=== PATIENT | male | born 1990 | race Caucasian/White ===

== ENCOUNTER 2020-08-19 13:15 | Outpatient (REF) | payer MEDICAID, SELFPAY | END 2020-08-19 13:16 | disposition home or self-care (01) | LOC: HO.LAB 13:15 | PROVIDERS: Visit Provider Internal Medicine | DX: Z20.822 Contact with and (suspected) exposure to COVID-19 (principal) | CPT/HCPCS: 36415; C9803; U0003 ==

== ENCOUNTER 2025-05-10 10:24 | Outpatient (REF) | payer MEDICAID, SELFPAY ==
--- OUTSIDE RECORDS SUMMARY | 2025-05-10 09:30 | XMS_ITS | Encounter Summary ---
Author Organization [employer] Address [address] [place] [address] Care Team Providers Care Manager Web Name Role Phone Oanh Agrawal MD Primary Care Provide r Encounter Details Date Type Department Care Team ([facility] st Contact Info) Description 05/10/2025 9:30 AM EDT Office Visit [facility] [address] [place] [address] [phone] Oanh Agrawal MD [address], [place] [phone] Class 1 obesity due to excess calories without serious comorbidity with body mass index (BMI) of 30.0 to 30.9 in adult (Primary Dx); Dietary counseling; Exercise counseling; Onychomycosis; Tinea cruris; Chronic bilateral low back pain, unspecified whether sciatica present Social History Tobacco Use Types Packs/Day Years Used Date Smoking Tobacco: Never Smokeless Tobacco: Never Alcohol Use Standard Drinks/Week Comments Never 0 (1 standard drink = 0.6 oz pur e alcohol) Depression Answer Date Recorded Patient Health Questionnaire-9 Score 9 05/10/2025 Patient Health Questionnaire-9 Score 9 05/10/2025 Last PHQ-9: Questionnaire Data Not on file 1 Housing Stability Answer Date Recorded What is your housing situation today? I have leeann cardona 05/10/[address] you li ve. Do you have problems with any of the following? None of the above 05/10/2025 Food Insecurity Answer Date Recorded Within the past 12 months, y ou worried that your food would run out before you got money to buy more: Never True 2024 Within the past 12 months,th e food you bought just didn't last and you didn't have enough money to get more: Sometimes True 05/10/2025 Transportation Answer Date Recorded In the past 12 months, has l ack of transportation kept you from medical appts, meetings, work or from getting things needed for daily living? No 05/10/2025 Utilities Answer Date Recorded In the past 12 months, has t he electric, gas, oil or water company threatened to shut off services in your home? No 05/10/2025 Depression Answer Date Recorded Patient Health Questionnaire-2 Score 3 05/10/2025 Internet Access Answer Date Recorded Internet Access Q1 Yes 05/10/2025 Internet Access Q2 Not on file 05/10/2025 Sex and Gender Information Value Date Recorded Sex Assigned at Male 05/25/2022 10:17 AM EDT Legal Sex Male 10:17 AM EDT Gender Identity Male 01/10/2025 9:12 AM EDT Sexual Orientation Straight 05/25/2022 10 :17 AM EDT documented as of this encounter Last Filed Vital Signs Vital Sign Reading Time Taken Comments Blood Pressure 124/76 05/10/2025 9:46 AM EDT Pulse 65 05/10/2025 9:46 AM EDT Temperature 36.3 C (97.3 F) 05/10/2025 9:46 AM EDT Respiratory Rate 20 05/10/2025 9:46 AM EDT Oxygen Saturation 99% 05/10/2025 9:46 AM EDT Inhaled Oxygen Concentration - - Weight 90.6 kg (199 lb 12.8 oz) 05/10/2025 9:46 AM EDT Height 172.7 cm (5' 8 ) 05/10/2025 9:46 AM EDT Body Mass Index 30.38 05/10/2025 9:46 AM EDT documented in this encounter Functional Status * Over the past 2 weeks, how often have you been bothered by any of the following problems? Question Answer Date of Assessment Author Patient Health Questionnaire-2 Score 3 04/25 9:47 AM EDT Alisia Stone MA * Little interest or pleasure in doing things Answer Date of Assessment Author More than half the days 05/10/2025 9:47 AM EDT Alisia Rosario MA * Feeling down, depressed, or hopeless Answer Date of Assessment Author Several days 05/10/2025 9:47 AM EDT Sarmad Stone ra, [place] * Trouble falling or staying asleep, or sleeping too much Answer Date of Assessment Author More than half the days 05/10/2025 9:47 AM EDT Alisia Rosario MA * Feeling tired or having little energy Answer Date of Assessment Author Several days 05/10/2025 9:47 AM EDT Sarmad Stone ra, [place] * Poor appetite or overeating Answer Date of Assessment Author Several days 05/10/2025 9:47 AM EDT Sarmad Stone ra, [place] * Feeling bad about yourself - or that you are a failure or have let yourself or your family down Answer Date of Assessment Author Several days 05/10/2025 9:47 AM EDSarmad Lee ra, [place] * Trouble concentrating on things, such as reading the newspaper or watching television Answer Date of Assessment Author Several days 05/10/2025 9:47 AM EDT Sarmad Stone ra, [place] * Moving or speaking so slowly that other people could have noticed? Or the opposite - being so fidgety or restless that you have been moving around a lot more than usual. Answer Date of Assessment Author Not at all 05/10/2025 9:47 AM EDSarmad Lee ra, [place] * Thoughts that you would be better off or hurting yourself in some way Answer Date of Assessment Author Not at all 05/10/2025 9:47 AM Sarmad Hyde ra, [place] * Patient Health Questionnaire-9 Score Answer Date of Assessment Author 9 05/10/2025 9:47 AM Sarmad Hyde ra, [place] * How difficult have these problems made it for you to do your work, take care of things at home, or get along with other people? Answer Date of Assessment Author Very difficult 05/10/2025 9:47 AM Sarmad Hyde ra, [place] documented as of this encounter Progress Notes * Oanh Fisher MD - 05/10/2025 9:30 AM EDT SUBJECTIVE: Spencer Matute is a 34 y.o. year old male who presents for New Patient . Occupation: Works putting floors Lives with: With partner - EtOH occasionally on holidays - smoking cigarettes denies - recreational drug use used to smoke marijuana to help to quit 3 years ago Diet: Regular Exercise: Currently sedentary used to be active Surgeries/Hospitalizations: None PMHx: Anemia when he was a child FMHx: Hypertension on father, maternal grandmother breast cancer and possible colon cancer? Immunizations: Declines flu vaccine today Acute Concerns: History of difficulty sleeping, previously used marijuana to aid sleep, stopped 2-3 years ago - Fungal infection affecting both outer toenails, unsuccessfully treated with topical agents prior to visit - Rash in the groin area developed after starting use of certain underwear - Reports history of mild anemia in childhood, resolved - Occasional episodes of lower back pain with radiating sensation, occurred twice, resolved spontaneously - Denies current use of tobacco, alcohol only on special occasions, denies current drug use Social History Social History Narrative Not on file Problem List[1] Family History[2] Review of Systems Constitutional: Negative. HENT: Negative. Respiratory: Negative. Cardiovascular: Negative. Skin: Positive for rash. OBJECTIVE: Vitals: 05/10/25 0946 BP: 124/76 BP Location: Left arm Patient Position: Sitting BP Cuff Size: Large adult Pulse: 65 Resp: 20 Temp: 97.3 ??F (36.3 ??C) TempSrc: Temporal SpO2: 99% Weight: 199 lb 12.8 oz (90.6 kg) Height: 5' 8 (1.727 m) Physical Exam Constitutional: Appearance: Normal appearance. Cardiovascular: Rate and Rhythm: Normal rate and regular rhythm. Pulmonary: Effort: Pulmonary effort is normal. Breath sounds: Normal breath sounds. Abdominal: General: Abdomen is flat. Palpations: Abdomen is soft. Musculoskeletal: Right lower leg: No edema. Left lower leg: No edema. Neurological: Mental Status: He is alert. Follow Up: Follow up for televisit 4-6 weeks review of labs . Medications Ordered Prior to Encounter[3] Problem List Items Addressed This Visit Class 1 obesity due to excess calories without serious comorbidity with body mass index (BMI) of 30.0 to 30.9 in adult - Primary Class 1 obesity present, likely related to decreased physical activity and dietary habits. - Ordered laboratory tests to evaluate metabolic status, including glucose, renal function, hepaticfunction, anemia, HIV, hepatitis, and vitamin D. Referred to account leader. Advised weight reductionthrough diet and exercise. Relevant Orders CBC auto differential (Completed) Comprehensive Metabolic Panel (Completed) Hemoglobin A1c (Completed) HIV-1/2 Antigen and Antibodies, Fourth Generation, with Reflexes Hepatitis C Antibody with Reflex to HCV, RNA, Quantitative, Real-Time PCR Lipid Panel, Standard (Completed) Vitamin D, 25-Hydroxy, Total, Immunoassay (Completed) TSH with Reflex to Free T4 (Completed) Onychomycosis Onychomycosis affecting bilateral lateral toenails. - Prescribed topical antifungal solution for affected nails. Advised application of Vicks during the day and antifungal solution at night. Ordered laboratory tests to assess hepatic function prior toconsidering oral antifungal therapy. Follow-up televisit scheduled in 4-6 weeks to review response and laboratory results. Provided refill for topical medication. Relevant Medications clotrimazole (Lotrimin) 1 % cream ciclopirox (Penlac) 8 % solution Tinea cruris - Tinea cruris present in the inguinal region. - Prescribed topical antifungal cream to be applied twice daily for a minimum of 2 weeks, up to 4 weeks as needed. Advised to keep area dry and clean, and to avoid tight underwear. Follow-up televisit scheduled in 4-6 weeks to assess treatment response. Relevant Medications clotrimazole (Lotrimin) 1 % cream ciclopirox (Penlac) 8 % solution Chronic bilateral low back pain Sciatica symptoms likely related to increased body weight and physical activity. - Advised weight reduction and regular exercise to decrease pressure on lumbar spine. Recommended gradual increase in activity and proper technique to prevent recurrence. Advised to return for evaluation if symptoms recur. Other Visit Diagnoses Dietary counseling Exercise counseling [1] Patient Active Problem List Diagnosis Severe dental caries Pain, dental Class 1 obesity due to excess calories without serious comorbidity with body mass index (BMI) of 30.0 to 30.9 in adult Onychomycosis Tinea cruris Chronic bilateral low back pain [2] No family history on file. [3] Current Outpatient Medications on File Prior to Visit Medication Sig Dispense Refill acetaminophen (Tylenol 8 Hour) 650 MG ER tablet Take 1 tablet (650 mg) by mouth every 8 (eight) hours if needed for mild pain. Do not crush, chew, or split. 30 tablet 0 ibuprofen 600 MG tablet Take 1 tablet (600 mg) by mouth 3 times daily. 15 tablet 0 No current facility-administered medications on file prior to visit. documented in this encounter Miscellaneous Notes * Assessment & Plan Note - Oanh Fisher MD - 05/10/2025 12:51 PM EDT Associated Problem(s): Chronic bilateral low back pain Sciatica symptoms likely related to increased body weight and physical activity. - Advised weight reduction and regular exercise to decrease pressure on lumbar spine. Recommended gradual increase in activity and proper technique to prevent recurrence. Advised to return for evaluation if symptoms recur. * Assessment & Plan Note - Oanh Fisher MD - 05/10/2025 12:50 PM EDT Associated Problem(s): Tinea cruris - Tinea cruris present in the inguinal region. - Prescribed topical antifungal cream to be applied twice daily for a minimum of 2 weeks, up to 4 weeks as needed. Advised to keep area dry and clean, and to avoid tight underwear. Follow-up televisit scheduled in 4-6 weeks to assess treatment response. * Assessment & Plan Note - Oanh Fisher MD - 05/10/2025 12:49 PM EDT Associated Problem(s): Onychomycosis Onychomycosis affecting bilateral lateral toenails. - Prescribed topical antifungal solution for affected nails. Advised application of Vicks during the day and antifungal solution at night. Ordered laboratory tests to assess hepatic function prior toconsidering oral antifungal therapy. Follow-up televisit scheduled in 4-6 weeks to review response and laboratory results. Provided refill for topical medication. * Assessment & Plan Note - Oanh Fisher MD - 05/10/2025 12:49 PM EDT Associated Problem(s): Class 1 obesity due to excess calories without serious comorbidity with bodymass index (BMI) of 30.0 to 30.9 in adult Class 1 obesity present, likely related to decreased physical activity and dietary habits. - Ordered laboratory tests to evaluate metabolic status, including glucose, renal function, hepaticfunction, anemia, HIV, hepatitis, and vitamin D. Referred to account leader. Advised weight reductionthrough diet and exercise. documented in this encounter Plan of Treatment Upcoming Encounters Date Type Department Care Team (Late st Contact Info) Description 07/06/2025 9:45 AM EST Telemedicine [facility] [address] [place] [address] [phone] Oanh Agrawal MD [address] [place] [phone] Scheduled Orders Name Type Priority Associated Diagnoses Orde r Schedule HIV-1/2 Antigen and Antibodies, Fourth Generation, with Reflexes Lab Routine Class 1 obesity due to excess calories without serious comorbidity with body mass index (BMI) of 30.0 to 30.9 in adult Expected: 05/10/2025 (Approximate), Expires: 05/10/2026 Hepatitis C Antibody with Reflex to HCV, RNA, Quantitative, Real-Time PCR Lab Routine Class 1 obesity due to excess calories without serious comorbidity with body mass index (BMI) of 30.0 to 30.9 in adult Expected: 05/10/2025, Expires: 05/10/2026 documented as of this encounter Procedures Procedure Name Priority Date/Time Associated Diagnosis Comments VITAMIN D,25-OH,TOTAL,IA Routine 05/10/2025 10:35 AM EDT Class 1 obesity due to excess calories without serious comorbidity with body mass index (BMI) of 30.0 to 30.9 in adult TSH W/REFLEX TO FT4 Routine 05/10/2025 1 0:35 AM EDT Class 1 obesity due to excess calories without serious comorbidity with body mass index (BMI) of 30.0 to 30.9 in adult CBC WITH AUTO DIFFERENTIAL Routine 05/10/2025 10:35 AM EDT Class 1 obesity due to excess calories without serious comorbidity with body mass index (BMI) of 30.0 to 30.9 in adult HEMOGLOBIN A1C Routine 05/10/2025 10:35 AM EDT Class 1 obesity due to excess calories without serious comorbidity with body mass index (BMI) of 30.0 to 30.9 in adult LIPID PANEL, STANDARD Routine 05/10/2025 10:35 AM EDT Class 1 obesity due to excess calories without serious comorbidity with body mass index (BMI) of 30.0 to 30.9 in adult COMPREHENSIVE METABOLIC PANEL Routine 05/10/2025 10:35 AM EDT Class 1 obesity due to excess calories without serious comorbidity with body mass index (BMI) of 30.0 to 30.9 in adult documented in this encounter Results * TSH with Reflex to Free T4 (05/10/2025 10:35 AM EDT) TSH reflex Free T4 0.93 0.32 - 4.0 uIU/mL [facility] Blood Venous blood specimen / Unknown 05/10/2025 10:35 AM EDT 05/10/2025 11:00 AM EDT us Oanh Fisher MD LAB BLOOD ORDERABLES Final Result [facility] [address] [place] [phone] * (ABNORMAL) Vitamin D, 25-Hydroxy, Total, Immunoassay (05/10/2025 10:35 AM EDT) Vitamin D 25-OH Total 18.2(L) >30 ng/mL [facility] Comment: Health Based Reference Values*< 20 ng/mL Augtwznvc83-18 ng/mL Insufficient> 30 ng/mL Sufficient*Melody COULTER. N Engl J Med. 2007;357:266-280There is no well-established upper level of normal vitamin Dlevels. Some laboratories use 50 ng/mL as an upper limit ofnormal. However, toxicity is patient-dependent and may occurat any level. Careful correlation with the patient'spresentation is necessary and, if there is concern forvitamin D toxicity, treatment should be consideredirrespective of the serum level.Care must be taken in interpreting Vitamin D results fromdifferent laboratories and methodologies. Published datademonstrated that results from patients undergoinghemodialysis may show a negative bias when tested withvarious automated 25-OH vitamin D assays when compared toLC-MS/MS.When testing samples from patients whose predominant form ofVitamin D is Vitamin D2, such as patients receiving VitaminD2 supplementation, results that are subtherapeutic shouldbe confirmed with another method such as LC-MS/MS. Blood Venous blood specimen / Unknown 05/10/2025 10:35 AM EDT 05/10/2025 11:00 AM EDT us Oanh Fisher MD LAB BLOOD ORDERABLES Final Result [facility] [address] [place] [phone] * Lipid Panel, Standard (05/10/2025 10:35 AM EDT) Triglycerides 61 <150 mg/dL [facility] Comment:Desirable Triglyceri de: less than 150 mg/dLBorderline High Triglyceride 150-199 mg/dLHigh Triglyceride: 200-499 mg/dLVery High Triglyceride: greater than or equal to 5OO mg/dL Cholesterol 154 <200 mg/dL [facility] Comment:Desirable Cholestero l: less than 200 mg/dLBorderline High Cholesterol: 200-239 mg/dLHigh Cholesterol: greater than 239 mg/dL LDL Cholesterol Calculated 85 <100 mg/dL [facility] Comment:Desirable LDL: less than 100 mg/dLNear Optimal/Above Optimal LDL: 110- 129 mg/dLBorderline High LDL: 130-159 mg/dLHigh LDL: 160-189 mg/dLVery High LDL: greater than or equal to 190 mg/dL HDL Cholesterol 57 >40 mg/dL [facility] Comment:Desirable HDL: great er than 40 mg/dL Note: This HDL assay may give artificially low results in patients with liver disease. Blood Venous blood specimen / Unknown 05/10/2025 10:35 AM EDT 05/10/2025 11:00 AM EDT us Oanh Fisher MD LAB BLOOD ORDERABLES Final Result Performing Organization Address [facility] Co de Phone Number [facility] [address] [place] [phone] * Hemoglobin A1c (05/10/2025 10:35 AM EDT) Hemoglobin A1c 5.9 <6.0 % [facility] Comment:Hemoglobin A1C Refer ence Range Adults: 4.8 - 6.0 % Non diabetic: < 6.0 % Goal: < 7.0 %Additional Action Suggested: > 8.0 %Note: Hemoglobin A1c results are invalid for patients with abnormal amounts of HbF. Blood transfusions may impact the HbA1c concentration in the patient sample. Estimated Average Glucose 123 mg/dL [facility] Comment:eAG = Estimated ave rage glucose which is %A1C expressed asaverage glucose, using the formula of the [id number] Glucose study (ADAG), Diabetes Care, Vol.31,#8,2007 Blood Venous blood specimen / Unknown 05/10/2025 10:35 AM EDT 05/10/2025 11:00 AM EDT us Oanh Fisher MD LAB BLOOD ORDERABLES Final Result Performing Organization Address [facility] Co de Phone Number [facility] [address] [place] [phone] * (ABNORMAL) Comprehensive Metabolic Panel (05/10/2025 10:35 AM EDT) Sodium 142 135 - 145 mmol/L [facility] Potassium 4.4 3.3 - 5.1 mmol/L [facility] Chloride 108 96 - 108 mmol/L [facility] Carbon Dioxide 27 22 - 29 mmol/L [facility] Anion Gap 11(L) 12 - 20 [facility] Urea Nitrogen (BUN) 20(H) 9 - 16 mg/dL [facility] Creatinine, Serum 1.05 0.5 - 1.4 mg/dL [facility] Estimated Glomerular Filt Rate >60 [facility] Comment:Chronic Kidney Disea se: Estimated GFR < 60 mL/min/[id number] Kidney Disease: Estimated GFR < 15 mL/min/1.73m2 Glucose 108 60 - 115 mg/dL [facility] Calcium 9.5 8.4 - 10.2 mg/dL [facility] Bilirubin, Total 0.2 0.0 - 1.0 mg/dL [facility] Aspartate Amino Transferase 30 5 - 37 U/L [facility] Alanine Aminotransferase 26 0 - 40 U/L [facility] Total Protein 7.8 6.5 - 8.0 g/dL [facility] Albumin Level 5.0 3.5 - 5.0 g/dL [facility] Alkaline Phosphatase 66 39 - 117 U/L [facility] Blood Venous blood specimen / Unknown 05/10/2025 10:35 AM EDT 05/10/2025 11:00 AM EDT us Oanh Fisher MD LAB BLOOD ORDERABLES Final Result [facility] [address] [place] [phone] * (ABNORMAL) CBC auto differential (05/10/2025 10:35 AM EDT) White Blood Count 4.5(L) 4.8 - 10.8 X10*3/uL [facility] Red Blood Count 5.28 4.60 - 5.80 X10*6/uL [facility] Hemoglobin 13.8(L) 14.0 - 18.0 g/dl [facility] Hematocrit 42.1 42.0 - 52.0 % [facility] Mean Corpuscular Volume 79.7(L) 80.0 - 98.0 fL [facility] Mean Corpuscular Hemoglobin 26.1(L) 27.0 - 33.0 pg [facility] Mean Corpuscular HGB Conc 32.8 31.0 - 36.0 g/dl [facility] Red Cell Distribution Width 13.5 11.0 - 16.0 % [facility] Platelet Count 168 160 - 400 X10*3/uL [facility] Mean Platelet Volume 12.3 9.4 - 12.4 fL [facility] Neutrophils Percent Auto 65.7 45 - 73 % [facility] Imm Gran Pct Auto 0.2 0.0 - 0.4 % [facility] Lymphocytes Percent Auto 23.8 20 - 40 % [facility] Monocytes Percent Auto 7.9 2 - 11 % [facility] Eosinophils Percent Auto 1.5 0 - 4 % [facility] Basophils Percent Auto 0.9 0 - 2 % [facility] NRBC Pct Auto 0.0 0.0 - 0.2 /100WBC [facility] Neutrophils Absolute Auto 3.0 2.0 - 8.3 x10*3/uL [facility] Imm Gran Abs Auto 0.01 0.00 - 0.03 X10*3/uL [facility] Lymphocytes Absolute Auto 1.1(L) 1.2 - 4.9 X10*3/uL [facility] Monocytes Absolute Auto 0.4 0.1 - 1.2 X10*3/uL [facility] Eosinophils Absolute Auto 0.1 0.0 - 0.4 X10*3/uL [facility] Basophils Absolute Auto 0.0 0.0 - 0.2 X10*3/uL [facility] NRBC Abs Auto 0.000 0.0 - 0.012 X10*3/uL [facility] Blood Venous blood specimen / Unknown 05/10/2025 10:35 AM EDT 05/10/2025 11:00 AM EDT Oanh Fisher MD LAB BLOOD ORDERABLES Final Result [facility] [address] [place] [phone] documented in this encounter Visit Diagnoses Diagnosis Class 1 obesity due to excess calories without serious comorbidity with body mass index (BMI) of 30.0 to 30.9 in adult- Primary Dietary counseling Dietary surveillance and counseling Exercise counseling Onychomycosis Dermatophytosis of nail Tinea cruris Dermatophytosis of groin and perianal area Chronic bilateral low back pain, unspecified whether sciatica present documented in this encounter Additional Health Concerns Assessment Noted Time PHQ-9 Depression Total Score: 9 05/10/20 9:47 AM EDT documented as of this encounter Care Teams Manager Web Relationship Specialty Start Date End Date Oanh Agrawal MD [address] [place] [phone] PCP - General Internal Medicine 05/10/25 documented as of this encounter
[2025-05-10 11:03] LABS: MANUAL DIFF FLAG NO
[2025-05-10 11:21] LABS: Hematocrit 42.1 % (42.0-52.0); Hemoglobin 13.8 g/dl (14.0-18.0); Imm Gran Abs Auto 0.01 X10*3/uL (0.00-0.03); Imm Gran Pct Auto 0.2 % (0.0-0.4); Lymphocytes Absolute Auto 1.1 X10*3/uL (1.2-4.9); Mean Corpuscular HGB Conc 32.8 g/dl (31.0-36.0); Mean Corpuscular Hemoglobin 26.1 pg (27.0-33.0); Mean Corpuscular Volume 79.7 fL (80.0-98.0); NRBC Abs Auto 0.000 X10*3/uL (0.0-0.012); NRBC Pct Auto 0.0 /100WBC (0.0-0.2); Platelet Count 168 X10*3/uL (160-400); Red Blood Count 5.28 X10*6/uL (4.60-5.80); White Blood Count 4.5 X10*3/uL (4.8-10.8)
[2025-05-10 11:45] LABS: Hemoglobin A1C 148.5416 umol/L
[2025-05-10 12:29] LABS: Alanine Aminotransferase 26 U/L (0-40); Albumin Level 5.0 g/dL (3.5-5.0); Alkaline Phosphatase 66 U/L (39-117); Anion Gap 11 (12-20); Aspartate Amino Transferase 30 U/L (5-37); Blood Urea Nitrogen 20 mg/dL (9-16); Calcium 9.5 mg/dL (8.4-10.2); Carbon Dioxide 27 mmol/L (22-29); Chloride 108 mmol/L (96-108); Cholesterol 154 mg/dL (<200); Estimated Glomerular Filt Rate > 60; HDL Cholesterol 57 mg/dL (>40); Potassium 4.4 mmol/L (3.3-5.1); Sodium 142 mmol/L (135-145); Total Protein 7.8 g/dL (6.5-8.0); Triglycerides 61 mg/dL (<150)
--- OUTSIDE RECORDS SUMMARY | 2025-05-10 12:52 | XMS_ITS | Encounter Summary ---
Author Organization [employer] Address [address] [facility] 7t [place] [address] Care Team Providers Care Director Of Strategic Programs Name Role Phone Oanh Agrawal MD Primary Care Provide r Encounter Details Date Type Department Care Team (Latest Contact Info) Description 05/10/2025 Travel Social History Tobacco Use Types Packs/Day Years [...] AM EDT documented as of this encounter Functional Status * Over the [...] Assessment Author Several days 05/10/2025 9:47 AM Sarmad Hyde ra, [place] * Poor appetite or overeating Answer Date of Assessment Author Several days 05/10/2025 9:47 AM EDSarmad Lee ra, [place] * Feeling bad about yourself [...] 9:47 AM EDSarmad Lee ra, [place] * Moving or speaking so slowly that other people could have noticed? Or the opposite - being so fidgety or restless that you have been moving around a lot more than usual. Answer Date of Assessment Author Not at all 05/10/2025 9:47 AM Sarmad Hyde ra, [place] * Thoughts that you would be better off or hurting yourself in some way Answer Date of Assessment Author Not at all 05/10/2025 9:47 AM EDT Sarmad Stone ra, [place] * Patient Health Questionnaire-9 Score Answer Date of Assessment Author 9 05/10/2025 9:47 AM EDT Sarmad Stone ra, [place] * How difficult have these problems made it for you to do your work, take care of things at home, or get along with other people? Answer Date of Assessment Author Very difficult 05/10/2025 9:47 AM EDT Sarmad Stone ra, [place] documented as of this encounter Plan of Treatment Upcoming Encounters Date Type Department Care Team (Late st Contact Info) Description 07/06/2025 9:45 AM EST Telemedicine [facility] MEDICINE [address] [place] [phone] Oanh Agrawal MD [address] [place] [address] documented as of this encounter Visit Diagnoses Not on filedocumented in this encounter Additional Health Concerns Assessment Noted Time PHQ-9 Depression Total Score: 9 05/10/20 9:47 AM EDT documented as of this encounter Care Teams Director Of Strategic Programs Relationship Specialty Start Date End Date Oanh Agrawal MD [address] [place] [phone] PCP - General Internal Medicine 05/10/25 documented as of this encounter
--- OUTSIDE RECORDS SUMMARY | 2025-05-10 12:52 | XMS_ITS | Encounter Summary ---
Author Organization [employer] Address [address] [place] [address] 7t [place] [address] Care Team Providers Care Laborer Hide House Name Role Phone Oanh Agrawal MD Primary Care Provide r Reason for Visit * Reason Onset Date Comments no insurance emergency dental 01/10/2025 Encounter Details Date Type Department Care Team ([facility] st Contact Info) Description 01/10/2025 Telephone [facility] ADULT DENTAL [address] [place] [address] Brissa Weber, DDS [address] [place] [address] no insurance emergency dental Social History Tobacco Use Types Packs/Day Years Used Date Smoking Tobacco: Never Assessed Sex and Gender Information Value Date Recorded Sex Assigned at Male 05/25/2022 10:17 AM EDT Legal Sex Male 10:17 AM EDT Gender Identity Male 01/10/2025 9:12 AM EDT Sexual Orientation Straight 05/25/2022 10 :17 AM EDT documented as of this encounter Miscellaneous Notes * Telephone Encounter - Analilia Massey - 01/10/2025 9:14 AM EDT Patient is coming in today for emergency dental visit and currently has no insurance. I reached outto M[facility] however unable to connect. Message sent for contact to assist with insurance and/or SFS assistance. test deskman [facility] also informed. Spoke with Meredith and currently dental managed care is unable to assist patient on the dental side. Patient has been advised to come in as soon as possible to 2nd or 3rd floor for assistance with dental and can then return to appt at 1pm. DR documented in this encounter Plan of Treatment Upcoming Encounters Date Type Department Care Team (Late st Contact Info) Description 07/06/2025 9:45 AM EST Telemedicine [facility] MEDICINE [address] [place], [place] [phone] Oanh Agrawal MD [address] [place] [address] documented as of this encounter Visit Diagnoses Not on filedocumented in this encounter Care Teams Laborer Hide House Relationship Specialty Start Date End Date Oanh Agrawal MD [address] [place], [place] [phone] PCP - General Internal Medicine 05/10/25 documented as of this encounter
--- OUTSIDE RECORDS SUMMARY | 2025-05-10 12:52 | XMS_ITS | Encounter Summary ---
Author Organization [employer] Address [address] [facility] 7 [place] [address] Care Team Providers Care Fabric Pattern Grader Name Role Phone Unavailable Primary Care Provider Unavailabl e Reason for Visit * Reason Onset Date Comments CHART PREP 05/09/2025 Encounter Details Date Type Department Care Team ([facility] st Contact Info) Description 05/09/2025 Telephone [facility] MEDICINE [address] [place], [place] [phone] Oanh Agrawal MD [address] [place] [address] CHART PREP Social History Tobacco Use Types Packs/Day Years [...] encounter Miscellaneous Notes * Telephone Encounter - Zabrina Oliver MA - 05/09/2025 12:51 PM EDT Chart Prep Labs: not applicable Images: not applicable Referrals: not applicable Vaccines due: Covid, Flu, Hep B, and HPV Screenings: PISQ, HIV screen, Hepatitis C screen Overdue care gaps: SBIRT, SDOH, PHQ-9, and Disability screen documented in this encounter Plan of Treatment Upcoming Encounters Date Type Department Care Team (Late st Contact Info) Description 07/06/2025 9:45 AM EST Telemedicine [facility] MEDICINE [address] [place] [phone] Oanh Agrawal MD [address] [place] [address] documented as of this encounter Visit Diagnoses Not on filedocumented in this encounter
--- OUTSIDE RECORDS SUMMARY | 2025-05-10 12:52 | XMS_ITS | Clinical Summary ---
Author Organization [employer] Address [address] [place] [address] 7t [place] [address] Care Team Providers Care Automobile Brake Bonder Name Role Phone Oanh Agrawal MD Primary Care Provide r Allergies No known active allergies Medications acetaminophen (Tylenol 8 Hour) 650 MG ER tablet Take 1 tablet (650 mg) by mouth every 8 (eight) hours if needed for mild pain. Do not crush, chew, or split. 30 tablet 5 Active ibuprofen 600 MG tablet Take 1 tablet (600 mg) by mouth 3 times daily. 15 tablet 5 Active clotrimazole (Lotrimin) 1 % creamIndication s:Tinea cruris Apply topically 2 times daily for 28 days. 30 g 1 5 06/07/20 25 Active ciclopirox (Penlac) 8 % solutionIndicat ions:Onychomyco sis Apply topically at bedtime. 6 mL 5 Active Active Problems Problem Noted Date Diagnosed Date Class 1 obesity due to exces s calories without serious comorbidity with body mass index (BMI) of 30.0 to 30.9 in adult 05/10/2025 Assessment & Plan (05/10/2025 12:49 PM EDT): Class 1 obesity present, likely related to decreased physical activity and dietary habits. - Ordered laboratory tests to evaluate metabolic status, including glucose, renal function, hepatic function, anemia, HIV, hepatitis, and vitamin D. Referred to expediter service order. Advised weight reduction through diet and exercise. Onychomycosis 05/10/2025 Assessment & Plan (05/10/2025 12:49 PM EDT): Onychomycosis affecting bilateral lateral toenails. - Prescribed topical antifungal solution for affected nails. Advised application of Vicks during the day and antifungal solution at night. Ordered laboratory tests to assess hepatic function prior to considering oral antifungal therapy. Follow-up televisit scheduled in 4-6 weeks to review response and laboratory results. Provided refill for topical medication. Tinea cruris 05/10/2025 Assessment & Plan (05/10/2025 12:50 PM EDT): - Tinea cruris present in the inguinal region. - Prescribed topical antifungal cream to be applied twice daily for a minimum of 2 weeks, up to 4 weeks as needed. Advised to keep area dry and clean, and to avoid tight underwear. Follow-up televisit scheduled in 4-6 weeks to assess treatment response. Chronic bilateral low back pain 05/10/2025 Assessment & Plan (05/10/2025 12:51 PM EDT): Sciatica symptoms likely related to increased body weight and physical activity. - Advised weight reduction and regular exercise to decrease pressure on lumbar spine. Recommended gradual increase in activity and proper technique to prevent recurrence. Advised to return for evaluation if symptoms recur. Severe dental caries 01/16/2025 Pain, dental 01/16/2025 Encounters Date Type Department Care Team Description 05/10/2025 9:30 AM EDT Office Visit [address] [address] Oanh Agrawal MD Class 1 obesity due to excess calories without serious comorbidity with body mass index (BMI) of 30.0 to 30.9 in adult (Primary Dx); Dietary counseling; Exercise counseling; Onychomycosis; Tinea cruris; Chronic bilateral low back pain, unspecified whether sciatica present 05/10/2025 Travel 05/09/2025 Telephone [facility] MEDICINE [address] [place] [phone] Oanh Agrawal MD CHART PREP 05/01/2025 Patient Outreach [address] [address] Oanh Agrawal MD Pre-visit Planning ((Unable to reach for PVP screening, LVM) to be completed in office ) 03/30/2025 10:00 AM EDT Office Visit [facility] ADULT DENTAL [address] [place] [address] Adán Hutchinson DDS Severe dental caries (Primary Dx); Pain, dental 03/30/2025 Travel 02/22/2025 Telephone [facility] MEDICINE [address] [place], [place] [phone] Sadi George MD 02/12/2025 9:30 AM EDT Office Visit [facility] ADULT DENTAL [address] [place] [address] Adán Hutchinson DDS Severe dental caries (Primary Dx); Tipped teeth from Last 3 Months Social History Tobacco Use Types Packs/Day Years Used Date Smoking Tobacco: Never Smokeless Tobacco: Never Tobacco Cessation:Counseling Given: Not Answered Alcohol Use Standard Drinks/Week Comments Never 0 (1 standard drink = 0.6 oz pur e alcohol) Depression Answer Date Recorded Patient Health Questionnaire-9 Score 9 05/10/2025 Patient Health Questionnaire-9 Score 9 05/10/2025 Last PHQ-9: Questionnaire Data Not on file 1 Housing Stability Answer Date Recorded What is your housing situation today? I have leeannjeanne cardona 05/10/[address] you [...] Orientation Straight 05/25/2022 10 :17 AM EDT Last Filed Vital Signs Vital Sign Reading [...] Mass Index 30.38 05/10/2025 9:46 AM EDT Plan of Treatment Upcoming Encounters Date Type Department Care Team (Late st Contact Info) Description 07/06/2025 9:45 AM EST Telemedicine [facility] MEDICINE [address] [place] [address] Oanh Agrawal MD [address] [place] [address] Health Maintenance Due Date Last Done Comments HIV Screening 1992 Family Planning (PISQ) 2007 HPV Vaccines (1 - Male 3-dose series) 2007 Hepatitis C Screening 2010 Dental Prophylaxis 04/18/2011 10/15/2010, 0 01/06/2010, 02/13/2009, Additional history exists Hepatitis B Vaccines (1 of 3 - 19+ 3-dose series) 2011 Dental Oral Exam 04/28/2012 10/27/2011, , 03/19/2009 Dental X-Ray: Bitewings 09/23/2013 09/22/19 13, 10/27/2011, 11/14/2010 COVID-19 Vaccine ( season) 2025 Influenza Vaccine (#1) 2025 Depression Monitoring 11/08/2025 05/10/2025, 025 Alcohol/Substance Use Screening 05/10/2026 05/10/2025 Diabetes: Hemoglobin A1C 05/10/2026 05/10/2025 Disability Screening 05/10/2026 05/10/2025 SDOH Screening 05/10/2026 05/10/2025 Tobacco Screening 05/10/2026 05/10/2025 Dental X-Ray: Full Mouth 01/12/2028 025, 10/27/2011, 11/14/2010 Lipid Panel 05/10/2030 05/10/2025 DTaP/Tdap/Td Vaccines (2 - Td or Tdap) 09/22/2032 09/22/2022 Zoster Vaccines (1 of 2) 2042 RSV Patients and Patients Aged 60 years or older (1 - 1-dose 75+ series) 2067 HIB Vaccines Aged Out No longer eligi ble based on patient's age to complete this topic Hepatitis A Vaccines Aged Out No long er eligible based on patient's age to complete this topic IPV Vaccines Aged Out No longer eligi ble based on patient's age to complete this topic Meningococcal B Vaccine Aged Out No l onger eligible based on patient's age to complete this topic Meningococcal Vaccine Aged Out No ned dilan eligible based on patient's age to complete this topic Pneumococcal Vaccine: Pediatrics (0 to 5 Years) and At-Risk Patients (6 to 49) Years Aged Out No longer eligible based on patient's age to complete this topic RSV under 20 months Aged Out No longe r eligible based on patient's age to complete this topic Rotavirus Vaccines Aged Out No longer eligible based on patient's age to complete this topic Procedures Procedure Name Priority Date/Time Associated Diagnosis Comments TSH W/REFLEX TO FT4 Routine 05/10/2025 1 0:35 AM EDT Class 1 obesity due to excess calories without serious comorbidity with body mass index (BMI) of 30.0 to 30.9 in adult VITAMIN D,25-OH,TOTAL,IA Routine 05/10/2025 10:35 AM EDT [...] (BMI) of 30.0 to 30.9 in adult 19 EXTRACTION, ERUPTED TOOTH REQ REMOVAL OF BONE AND/OR SECTIONING OF TOOTH Routine 03/30/2025 10:00 AM EDT INTRAORAL - PERIAPICAL FIRST RADIOGRAPHIC IMAGE Routine 03/30/2025 10:00 AM EDT CASE PRESENTATION, DETAILED AND EXTENSIVE TREATMENT PLANNING Routine 03/30/2025 10:00 AM EDT CASE PRESENTATION, DETAILED AND EXTENSIVE TREATMENT PLANNING Routine 02/12/2025 9:30 AM EDT 1 EXTRACTION, ERUPTED TOOTH OR EXPOSED ROOT (ELEVATION/FORCEPS REMOVAL) Routine 02/12/2025 9:30 AM EDT PANORAMIC RADIOGRAPHIC IMAGE Routine 01/10/2025 1:00 PM EDT Tipped teeth Dental caries Dental abscess BITEWINGS - 4 RADIOGRAPHIC IMAGES Routine 09/22/2012 12:00 AM EST PERIODIC ORAL EVALUATION - ESTABLISHED PATIENT Routine 10/27/2011 12:00 AM EDT PROPHYLAXIS - ADULT Routine 10/15/2010 1 2:00 AM EDT from Last 3 Months or Most Recently Relevant to Health Maintenance Results * (ABNORMAL) Vitamin D, 25-Hydroxy, Total, Immunoassay (05/10/2025 10:35 AM EDT) Vitamin D 25-OH Total 18.2(L) >30 ng/mL [facility] Comment: Health Based Reference Values*< 20 ng/mL [id number] ng/mL Insufficient> 30 ng/mL Sufficient*Melody COULTER. N [...] Fisher MD LAB BLOOD ORDERABLES Final Result [facility] [address] [place] [phone] [phone] * TSH with Reflex to Free T4 (05/10/2025 10:35 AM EDT) TSH reflex Free T4 0.93 0.32 - 4.0 uIU/mL [facility] Blood Venous blood specimen / Unknown 05/10/2025 10:35 AM EDT 05/10/2025 11:00 AM EDT us Oanh Fisher MD LAB BLOOD ORDERABLES Final Result [facility] [address] [place], [place] [phone] * (ABNORMAL) CBC auto differential (05/10/2025 10:35 AM EDT) White Blood Count 4.5(L) 4.8 - 10.8 X10*3/uL [facility] Red Blood Count 5.28 4.60 - 5.80 X10*6/uL [facility] Hemoglobin 13.8(L) 14.0 - 18.0 g/dl [facility] Hematocrit 42.1 42.0 - 52.0 % [facility] Mean Corpuscular Volume 79.7(L) 80.0 - 98.0 fL [facility] Mean Corpuscular Hemoglobin 26.1(L) 27.0 - 33.0 pg [facility] Mean Corpuscular HGB Conc 32.8 31.0 - 36.0 g/dl [facility] Red Cell Distribution Width 13.5 11.0 - 16.0 % [facility] Platelet Count 168 160 - 400 X10*3/uL [facility] Mean Platelet Volume 12.3 9.4 - 12.4 fL [facility] Neutrophils Percent Auto 65.7 45 - 73 % [facility] Imm Gran Pct Auto 0.2 0.0 - 0.4 % [facility] Lymphocytes Percent Auto 23.8 20 - 40 % [facility] Monocytes Percent Auto 7.9 2 - 11 % [facility] Eosinophils Percent Auto 1.5 0 - 4 % [facility] Basophils Percent Auto 0.9 0 - 2 % [facility] NRBC Pct Auto 0.0 0.0 - 0.2 /100WBC [facility] Neutrophils Absolute Auto 3.0 2.0 - 8.3 x10*3/uL [facility] Imm Gran Abs Auto 0.01 0.00 - 0.03 X10*3/uL [facility] Lymphocytes Absolute Auto 1.1(L) 1.2 - 4.9 X10*3/uL [facility] Monocytes Absolute Auto 0.4 0.1 - 1.2 X10*3/uL [facility] Eosinophils Absolute Auto 0.1 0.0 - 0.4 X10*3/uL [facility] Basophils Absolute Auto 0.0 0.0 - 0.2 X10*3/uL [facility] NRBC Abs Auto 0.000 0.0 - 0.012 X10*3/uL [facility] Blood Venous blood specimen / Unknown 05/10/2025 10:35 AM EDT 05/10/2025 11:00 AM EDT us Oanh Fisher MD LAB BLOOD ORDERABLES Final Result Performing Organization Address [facility] de Phone Number [facility] [address] [place] [phone] * Hemoglobin A1c (05/10/2025 10:35 AM EDT) Hemoglobin A1c 5.9 <6.0 % [facility] Comment:Hemoglobin A1C Refer ence Range Adults: 4.8 - 6.0 % Non diabetic: < 6.0 % Goal: < 7.0 %Additional Action Suggested: > 8.0 %Note: Hemoglobin A1c results are invalid for patients with abnormal amounts of HbF. Blood transfusions may impact the HbA1c concentration in the patient sample. Estimated Average Glucose 123 mg/dL [facility] Comment:eAG = Estimated ave rage glucose which is %A1C expressed asaverage glucose, using the formula of the [id number] Glucose study (ADAG), Diabetes Care, Vol.31,#8,2007 Blood Venous blood specimen / Unknown 05/10/2025 10:35 AM EDT 05/10/2025 11:00 AM EDT us Oanh Fisher MD LAB BLOOD ORDERABLES Final Result Performing Organization Address [facility] Co de Phone Number [facility] [address] [place] [address] [phone] * Lipid Panel, Standard (05/10/2025 10:35 AM EDT) Triglycerides 61 <150 mg/dL [facility] Comment:Desirable Triglyceri de: less than 150 mg/dLBorderline High Triglyceride 150-199 mg/dLHigh Triglyceride: 200-499 mg/dLVery High Triglyceride: greater than or equal to 5OO mg/dL Cholesterol 154 <200 mg/dL [facility] Comment:Desirable Cholestero l: less than 200 mg/dLBorderline High Cholesterol: 200-239 mg/dLHigh Cholesterol: greater than 239 mg/dL LDL Cholesterol Calculated 85 <100 mg/dL [facility] Comment:Desirable LDL: less than 100 mg/dLNear Optimal/Above Optimal LDL: 110- 129 mg/dLBorderline High LDL: 130-159 mg/dLHigh LDL: 160-189 mg/dLVery High LDL: greater than or equal to 190 mg/dL HDL Cholesterol 57 >40 mg/dL [facility] Comment:Desirable HDL: great er than 40 mg/dL Note: This HDL assay may give artificially low results in patients with liver disease. Blood Venous blood specimen / Unknown 05/10/2025 10:35 AM EDT 05/10/2025 11:00 AM EDT us Oanh Fisher MD LAB BLOOD ORDERABLES Final Result [facility] [address] [place] [address] [phone] * (ABNORMAL) Comprehensive Metabolic Panel (05/10/2025 10:35 AM EDT) Sodium 142 135 - 145 mmol/L [facility] Potassium 4.4 3.3 - 5.1 mmol/L [facility] Chloride 108 96 - 108 mmol/L [facility] Carbon Dioxide 27 22 - 29 mmol/L [facility] Anion Gap 11(L) 12 - 20 [facility] Urea Nitrogen (BUN) 20(H) 9 - 16 mg/dL [facility] Creatinine, Serum 1.05 0.5 - 1.4 mg/dL [facility] Estimated Glomerular Filt Rate >60 [facility] Comment:Chronic Kidney Disea se: Estimated GFR < 60 mL/min/[id number] Kidney Disease: Estimated GFR < 15 mL/min/1.73m2 Glucose 108 60 - 115 mg/dL [facility] Calcium 9.5 8.4 - 10.2 mg/dL [facility] Bilirubin, Total 0.2 0.0 - 1.0 mg/dL [facility] Aspartate Amino Transferase 30 5 - 37 U/L [facility] Alanine Aminotransferase 26 0 - 40 U/L [facility] Total Protein 7.8 6.5 - 8.0 g/dL [facility] Albumin Level 5.0 3.5 - 5.0 g/dL [facility] Alkaline Phosphatase 66 39 - 117 U/L [facility] Blood Venous blood specimen / Unknown 05/10/2025 10:35 AM EDT 05/10/2025 11:00 AM EDT Oanh Fisher MD LAB BLOOD ORDERABLES Final Result [facility] [address] [place] [phone] [phone] from Last 3 Months Insurance [facility] C3 DENTAL-[facility] MEDICAID STAND ADULT Care Teams Automobile Brake Bonder Relationship Specialty Start Date End Date Oanh Agrawal MD [address] [place] [phone] PCP - General Internal Medicine 05/10/25
--- OUTSIDE RECORDS SUMMARY | 2025-05-10 12:52 | XMS_ITS | Clinical Summary ---
Author Organization [facility] Address [address] [phone] Phone Care Team Providers Care Bead Maker Name Role Phone Pcp, Unknown Primary Care Provider Unavailabl e Allergies No known active allergies Medications No known medications Social History Tobacco Use Types Packs/Day Years Used Date Smoking Tobacco: Former Cigarettes Tobacco Cessation:Counseling Given: Not Answered Alcohol Use Standard Drinks/Week Comments Not Currently 0 (1 standard drink = 0.6 oz pur e alcohol) Education Answer Date Recorded Are you interested in more education? Not on romy e 11/21/2022 Are you concerned about learning? Not on file 11/21/2022 No 11/21/2022 No 11/21/2022 Digital Access Answer Date Recorded No 12/20/2022 No 12/20/2022 No 12/20/2022 Reliable internet access at home? Not on file 12/20/2022 Device with a working camera? Not on file Intimate Partner Violence Answer Date R ecorded Are you denied basic needs s uch as food, clothing, or medical care? No 08/19/2022 In the past 12 months have y ou been in a relationship with a person who hurts, threatens, or tries to control you? No 08/19/2022 Are you denied basic needs s uch as food, clothing, or medical care? No 08/19/2022 In the past 12 months have y ou been in a relationship with a person who hurts, threatens, or tries to control you? No 08/19/2022 Sex and Gender Information Value Date Recorded Sex Assigned at Male 08/19/2022 10:40 PM EST Legal Sex Male 10:33 PM EST Gender Identity Male 08/19/2022 10:40 PM EST Sexual Orientation Not on file Last Filed Vital Signs Vital Sign Reading Time Taken Comments Blood Pressure 117/68 08/19/2022 11:37 PM EST Pulse 77 08/19/2022 11:37 PM EST Temperature 36.2 C (97.2 F) 08/19/2022 11:37 PM EST Respiratory Rate 18 08/19/2022 11:37 PM EST Oxygen Saturation 99% 08/19/2022 11:37 PM EST Inhaled Oxygen Concentration - - Weight 88.5 kg (195 lb) 08/19/2022 10:35 PM EST Height 172.7 cm (5' 8 ) 08/19/2022 10:35 PM EST Body Mass Index 29.65 08/19/2022 10:35 PM EST Plan of Treatment Health Maintenance Due Date Last Done Comments Adult Td,Tdap Booster 1992 DEPRESSION SCREENING 2004 SMOKING Hx and SMOKELESS TOB ACCO SCREENING 2005 HEPATITIS C SCREENING 2010 HIV ONE-TIME SCREENING (18-6 5 YEARS) 2010 INFLUENZA VACCINE (#1) 2025 COVID-19 VACCINE (2024-2 6 season) 2025 HEPATITIS A VACCINES Aged Out No long er eligible based on patient's age to complete this topic HIB VACCINES Aged Out No longer eligi ble based on patient's age to complete this topic MENINGOCOCCAL VACCINES (ACWY) Aged Out No longer eligible based on patient's age to complete this topic MENINGOCOCCAL VACCINES (B) Aged Out N o longer eligible based on patient's age to complete this topic PNEUMOCOCCAL VACCINES (0-49 years) Aged Out No longer eligible based on patient's age to complete this topic Medical Devices Not on file Care Teams Bead Maker Relationship Specialty Start Date End Date Pcp, Unknown PCP - General 08/19/22 Additional Source Comments The information contained in this document represents components of the legal health record. It is not the complete legal health record.[facility]
[2025-05-10 12:54] LABS: HIV Num 1 0.06 S/CO (0.00-0.99); ~HepC Num1 0.10 S/CO (0.00-0.79); ~Hepatitis C Antibody Nonreactive (Nonreactive)
== END 2025-05-10 10:25 | disposition home or self-care (01) ==
LOC: HO.HHCL 10:24
PROVIDERS: PCP Internal Medicine; Visit Provider Internal Medicine
DX: Z11.4 Encounter for screening for human immunodeficiency virus [HIV] (principal); Z11.59 Encounter for screening for other viral diseases; E66.811 Obesity, class 1; Z68.30 Body mass index [BMI] 30.0-30.9, adult
CPT/HCPCS: 36415; 80053; 80061; 82306; 83036; 84443; 85025; 86803; 87389